=== PATIENT | female | born 1945 | race Caucasian/White ===

== ENCOUNTER 2017-07-06 14:21 | Inpatient (IN) ==
[2017-07-06] MEDS ORDERED: AMPICILLIN/SULBACTAM 3,000 MG in SODIUM CHLORIDE 0.9% 100 ML IV ONE (15:56)
[2017-07-06] MEDS ORDERED: BISACODYL 5 MG TABLET PO PRN (15:59)
[2017-07-06] MEDS ORDERED: ONDANSETRON 4 MG/2 ML VIAL IV PRN (15:59)
[2017-07-06] MEDS ORDERED: ACETAMINOPHEN 325 MG TABLET PO PRN (15:59)
[2017-07-06] MEDS ORDERED: HYDROmorphone 2 MG/1 ML VIAL IV PRN (15:59)
[2017-07-06 16:23] LABS: Basophils # 0.1 10*3/uL (0.0-0.2); Basophils % 0.7 % (0.0-0.8); Eosinophils # 0.5 10*3/uL (0.0-0.87); Eosinophils % 6.4 % (0.00-10.9); Hematocrit 36.8 VOL% (35.7-47.0); Immature Granulocytes % 0.1 %; Immature Granulocytes Absolute 0.01 #; Lymphocytes # 2.1 10*3/uL (1.4-4.0); Lymphocytes % 28.8 % (21.3-54.2); Mean Corpuscular HGB Conc 32.6 GM/DL (32-36); Mean Corpuscular Hemoglobin 29 PG (27-34); Mean Corpuscular Volume 90.2 FL (87-102); Mean Platelet Volume 10.3 FL (9.6-12.0); Monocytes # 0.7 10*3/uL (0.11-0.8); Monocytes % 9.3 % (1.7-12.7); Neutrophils % 54.7 % (38.7-73.9); Platelet Count 242 T/CUMM (130-400); Red Blood Count 4.08 MC/CUMM (3.8-5.5); Red Cell Distribution Width 13.9 % (9.3-17.3); White Blood Count 7.3 T/CUMM (4-12)
[2017-07-06 16:53] LABS: Alanine Aminotransferase 41 U/L (13-56); Albumin 3.4 G/DL (3.4-5.0); Alkaline Phosphatase 84 U/L (45-117); Aspartate Amino Transferase 36 U/L (0-37); Bilirubin,Total < 0.39 MG/DL (0.2-1.0); Blood Urea Nitrogen 25 MG/DL (7-18); Calcium 8.8 MG/DL (8.5-10.1); Glucose 98 MG/DL (74-106); Osmolality,Calculated 284.3 MOS/KG (273-304); Potassium 4.5 MMOL/L (3.5-5.1); Sodium 141 MMOL/L (136-145); Total Protein 6.7 G/DL (6.4-8.3)
[2017-07-06] MEDS: BISOPROLOL 5 MG TABLET PO SCH (18:16)
[2017-07-06] MEDS: PRAVASTATIN 40 MG TABLET PO SCH (18:16)
[2017-07-06] MEDS: METHENAMINE HIPPURATE 1 GM TABLET PO SCH (21:25)
[2017-07-06] MEDS: traZODone 50 MG TABLET PO SCH (21:26)
[2017-07-06] MEDS: MAGNESIUM OXIDE 400 MG TABLET PO SCH (21:26)
[2017-07-06] MEDS: POTASSIUM GLUCONATE 500 MG TABLET PO SCH (21:26)
[2017-07-06] MEDS: SPIRONOLACTONE 25 MG TABLET PO SCH (21:27)
[2017-07-06] MEDS: LACTATED RINGERS 1,000 ML IV SCH (22:15)
[2017-07-07 06:31] LABS: Basophils % 0.5 % (0.0-0.8); Eosinophils # 0.6 10*3/uL (0.0-0.87); Eosinophils % 10.1 % (0.00-10.9); Hematocrit 33.8 VOL% (35.7-47.0); Hemoglobin 10.8 GM/DL (12.0-16.0); Immature Granulocytes % 0.3 %; Immature Granulocytes Absolute 0.02 #; Lymphocytes # 2.2 10*3/uL (1.4-4.0); Lymphocytes % 36.5 % (21.3-54.2); Mean Corpuscular Hemoglobin 29 PG (27-34); Mean Corpuscular Volume 89.9 FL (87-102); Mean Platelet Volume 10.6 FL (9.6-12.0); Monocytes # 0.6 10*3/uL (0.11-0.8); Monocytes % 9.1 % (1.7-12.7); Neutrophils # 2.6 10*3/uL (1.4-7.4); Neutrophils % 43.5 % (38.7-73.9); Platelet Count 197 T/CUMM (130-400); Red Blood Count 3.76 MC/CUMM (3.8-5.5); Red Cell Distribution Width 13.9 % (9.3-17.3); White Blood Count 6.1 T/CUMM (4-12)
[2017-07-07 06:49] LABS: PT Patient Result 10.7 SECS; Partial Thromboplastin Time 24.5 SECS (0-40)
[2017-07-07 06:55] LABS: Albumin 2.8 G/DL (3.4-5.0); Bilirubin,Total 0.7 MG/DL (0.2-1.0); Calcium 8.4 MG/DL (8.5-10.1); Magnesium 2.3 MG/DL (1.8-2.4); Phosphorous 3.6 MG/DL (2.5-4.9); Potassium 4.3 MMOL/L (3.5-5.1); Total Protein 5.7 G/DL (6.4-8.3)
[2017-07-07] MEDS: LACTATED RINGERS 1,000 ML IV SCH ×4 (09:02→19:55)
[2017-07-07] MEDS: LISINOPRIL 20 MG TABLET PO SCH (09:20)
[2017-07-07] MEDS: AMIODARONE 200 MG TABLET PO SCH (09:20)
[2017-07-07] MEDS: BISOPROLOL 5 MG TABLET PO SCH (09:20)
[2017-07-07] MEDS: PANTOPRAZOLE 40 MG TABLET PO SCH (09:21)
[2017-07-07] MEDS ORDERED: AMPICILLIN/SULBACTAM 3,000 MG in SODIUM CHLORIDE 0.9% 100 ML IV ONE (11:00)
[2017-07-07] MEDS ORDERED: ONDANSETRON 4 MG/2 ML VIAL IV PRN (12:40)
[2017-07-07] MEDS ORDERED: PROPOFOL 200 MG/20 ML VIAL IV ONE (12:46)
[2017-07-07] MEDS ORDERED: fentaNYL 100 MCG/2 ML VIAL ONE (12:46)
[2017-07-07] MEDS ORDERED: ONDANSETRON 4 MG/2 ML VIAL ONE (12:47)
[2017-07-07] MEDS ORDERED: HYDROmorphone 2 MG/1 ML VIAL ONE (12:47)
[2017-07-07] MEDS: HYDROmorphone 2 MG/1 ML VIAL IV PRN ×2 (12:47→12:57)
[2017-07-07] MEDS: MAGNESIUM OXIDE 400 MG TABLET PO SCH ×2 (14:33→21:03)
[2017-07-07] MEDS: ANASTROZOLE 1 MG TABLET PO SCH (14:33)
[2017-07-07] MEDS: SPIRONOLACTONE 25 MG TABLET PO SCH ×2 (14:33→21:03)
[2017-07-07] MEDS: METHENAMINE HIPPURATE 1 GM TABLET PO SCH ×2 (14:45→21:02)
[2017-07-07] MEDS: POTASSIUM GLUCONATE 500 MG TABLET PO SCH ×2 (14:45→21:37)
[2017-07-07] MEDS: traZODone 50 MG TABLET PO SCH (21:03)
[2017-07-08] MEDS: LACTATED RINGERS 1,000 ML IV SCH ×3 (04:05→16:16)
[2017-07-08 06:35] LABS: Basophils # 0.1 10*3/uL (0.0-0.2); Basophils % 0.7 % (0.0-0.8); Eosinophils # 0.7 10*3/uL (0.0-0.87); Eosinophils % 10.1 % (0.00-10.9); Hemoglobin 11.2 GM/DL (12.0-16.0); Immature Granulocytes % 0.3 %; Immature Granulocytes Absolute 0.02 #; Lymphocytes # 2.2 10*3/uL (1.4-4.0); Lymphocytes % 29.5 % (21.3-54.2); Mean Corpuscular Hemoglobin 29 PG (27-34); Mean Platelet Volume 10.5 FL (9.6-12.0); Monocytes # 0.6 10*3/uL (0.11-0.8); Monocytes % 7.5 % (1.7-12.7); Neutrophils # 3.8 10*3/uL (1.4-7.4); Neutrophils % 51.9 % (38.7-73.9); Platelet Count 209 T/CUMM (130-400); Red Blood Count 3.89 MC/CUMM (3.8-5.5); Red Cell Distribution Width 13.7 % (9.3-17.3); White Blood Count 7.3 T/CUMM (4-12)
[2017-07-08 07:05] LABS: Calcium 8.7 MG/DL (8.5-10.1); Osmolality,Calculated 281.3 MOS/KG (273-304); Potassium 4.5 MMOL/L (3.5-5.1)
[2017-07-08] MEDS: ANASTROZOLE 1 MG TABLET PO SCH (09:00)
[2017-07-08] MEDS: LISINOPRIL 20 MG TABLET PO SCH (09:00)
[2017-07-08] MEDS: PANTOPRAZOLE 40 MG TABLET PO SCH (09:00)
[2017-07-08] MEDS: SPIRONOLACTONE 25 MG TABLET PO SCH ×2 (09:00→21:12)
[2017-07-08] MEDS: MAGNESIUM OXIDE 400 MG TABLET PO SCH ×2 (09:01→21:14)
[2017-07-08] MEDS: BISOPROLOL 5 MG TABLET PO SCH (09:01)
[2017-07-08] MEDS: METHENAMINE HIPPURATE 1 GM TABLET PO SCH ×2 (09:01→21:13)
[2017-07-08] MEDS: AMIODARONE 200 MG TABLET PO SCH (09:01)
[2017-07-08] MEDS: POTASSIUM GLUCONATE 500 MG TABLET PO SCH ×2 (09:02→21:14)
[2017-07-08] MEDS: AMPICILLIN/SULBACTAM 3,000 MG in SODIUM CHLORIDE 0.9% 100 ML IV SCH ×2 (16:32→22:35)
[2017-07-08] MEDS: PRAVASTATIN 40 MG TABLET PO SCH (16:32)
[2017-07-08] MEDS: traZODone 50 MG TABLET PO SCH (21:13)
[2017-07-09] MEDS: AMPICILLIN/SULBACTAM 3,000 MG in SODIUM CHLORIDE 0.9% 100 ML IV SCH (05:39)
[2017-07-09 07:46] VITALS: BP 154/83
[2017-07-09] MEDS: METHENAMINE HIPPURATE 1 GM TABLET PO SCH (09:21)
[2017-07-09] MEDS: BISOPROLOL 5 MG TABLET PO SCH (09:21)
[2017-07-09] MEDS: LISINOPRIL 20 MG TABLET PO SCH (09:21)
[2017-07-09] MEDS: PANTOPRAZOLE 40 MG TABLET PO SCH (09:21)
[2017-07-09] MEDS: ANASTROZOLE 1 MG TABLET PO SCH (09:21)
[2017-07-09] MEDS: AMIODARONE 200 MG TABLET PO SCH (09:21)
[2017-07-09] MEDS: MAGNESIUM OXIDE 400 MG TABLET PO SCH (09:21)
[2017-07-09] MEDS: SPIRONOLACTONE 25 MG TABLET PO SCH (09:23)
[2017-07-09] MEDS: POTASSIUM GLUCONATE 500 MG TABLET PO SCH (09:23)
== END 2017-07-09 11:37 | disposition home health service (06) | DRG 571 ==
LOC: N.3E 14:37 → OBSVTOIN 14:37 → INTOOBSV 14:37
PROVIDERS: ADMIT Surgery; ATTEND Surgery

== ENCOUNTER 2021-04-24 16:24 | Inpatient (IN) ==
[2021-04-24 21:50] LABS: Basophils % 0.6 % (0.0-0.8); Eosinophils # 0.1 10*3/uL (0.0-0.87); Eosinophils % 1.9 % (0.00-10.9); Hematocrit 38.6 VOL% (35.7-47.0); Immature Granulocytes % 0.4 %; Immature Granulocytes Absolute 0.02 #; Lymphocytes # 1.3 10*3/uL (1.4-4.0); Lymphocytes % 25.5 % (21.3-54.2); Mean Corpuscular HGB Conc 31.1 GM/DL (32-36); Mean Corpuscular Volume 94.4 FL (87-102); Mean Platelet Volume 10.8 FL (9.6-12.0); Monocytes % 7.3 % (1.7-12.7); NRBC # 0.02 10*3/uL; Neutrophils % 64.3 % (38.7-73.9); Platelet Count 151 T/CUMM (130-400); Red Blood Count 4.09 MC/CUMM (3.8-5.5); Red Cell Distribution Width 15.4 % (9.3-17.3); White Blood Count 5.2 T/CUMM (4-12)
[2021-04-24 22:02] LABS: INR 1.1; PT Patient Result 12.2 SECS (10.5-12.0); Partial Thromboplastin Time 25.1 SECS (23.9-33.8)
[2021-04-24 22:05] LABS: Albumin 3.3 G/DL (3.4-5.0); Bilirubin,Total 0.6 MG/DL (0.20-1.00); Calcium 9.1 MG/DL (8.5-10.1); Osmolality,Calculated 282.4 MOS/KG (273-304); Potassium 3.6 MMOL/L (3.5-5.1); Total Protein 6.8 G/DL (6.4-8.2)
[2021-04-24] MEDS ORDERED: hydrALAZINE 20 MG/1 ML VIAL IV PRN (23:22)
[2021-04-24] MEDS ORDERED: DOCUSATE SODIUM 100 MG CAPSULE PO PRN (23:22)
[2021-04-24] MEDS ORDERED: ACETAMINOPHEN 325 MG TABLET PO PRN (23:22)
[2021-04-24] MEDS ORDERED: ZALEPLON 5 MG CAPSULE PO PRN (23:22)
[2021-04-24] MEDS ORDERED: guaiFENesin/DM ER 600-30 MG TABLET PO PRN (23:22)
[2021-04-24] MEDS ORDERED: DEXTROSE 50% 25 GM/50 ML VIAL IV PRN (23:22)
[2021-04-24] MEDS ORDERED: ONDANSETRON 4 MG/2 ML VIAL IV PRN (23:22)
[2021-04-24] MEDS ORDERED: GLUCAGON 1 MG VIAL IM PRN (23:22)
[2021-04-24] MEDS ORDERED: PANTOPRAZOLE 40 MG VIAL IV STA (23:24)
[2021-04-25 01:02] LABS: Basophils % 0.5 % (0.0-0.8); Eosinophils # 0.3 10*3/uL (0.0-0.87); Eosinophils % 3.2 % (0.00-10.9); Hematocrit 25.2 VOL% (35.7-47.0); Hemoglobin 7.9 GM/DL (12.0-16.0); Immature Granulocytes % 1.1 %; Immature Granulocytes Absolute 0.09 #; Lymphocytes # 2.2 10*3/uL (1.4-4.0); Lymphocytes % 26.9 % (21.3-54.2); Mean Corpuscular HGB Conc 31.3 GM/DL (32-36); Mean Corpuscular Volume 96.2 FL (87-102); Mean Platelet Volume 11.1 FL (9.6-12.0); Monocytes % 7.6 % (1.7-12.7); Neutrophils % 60.7 % (38.7-73.9); Platelet Count 223 T/CUMM (130-400); Red Blood Count 2.62 MC/CUMM (3.8-5.5); Red Cell Distribution Width 15.3 % (9.3-17.3); White Blood Count 8.2 T/CUMM (4-12)
[2021-04-25] MEDS ORDERED: PANTOPRAZOLE INJ 200 MG in SODIUM CHLORIDE 0.9% 250 ML IV SCH (03:00)
[2021-04-25 05:06] LABS: Basophils % 0.5 % (0.0-0.8); Eosinophils # 0.4 10*3/uL (0.0-0.87); Eosinophils % 4.7 % (0.00-10.9); Hematocrit 23.7 VOL% (35.7-47.0); Hemoglobin 7.2 GM/DL (12.0-16.0); Immature Granulocytes % 1.7 %; Immature Granulocytes Absolute 0.13 #; Lymphocytes # 2.1 10*3/uL (1.4-4.0); Mean Corpuscular HGB Conc 30.4 GM/DL (32-36); Monocytes % 10.6 % (1.7-12.7); Neutrophils % 54.5 % (38.7-73.9); Platelet Count 186 T/CUMM (130-400); Red Blood Count 2.47 MC/CUMM (3.8-5.5); Red Cell Distribution Width 15.3 % (9.3-17.3); White Blood Count 7.4 T/CUMM (4-12)
[2021-04-25] MEDS ORDERED: SODIUM CHLORIDE 0.9% 1,000 ML IV PRN (05:22)
[2021-04-25] MEDS ORDERED: NITROGLYCERIN SL 0.4 MG TABLET SL PRN (05:27)
[2021-04-25 05:48] LABS: Albumin 2.9 G/DL (3.4-5.0); Bilirubin,Total 0.7 MG/DL (0.20-1.00); Osmolality,Calculated 286.1 MOS/KG (273-304); Potassium 3.7 MMOL/L (3.5-5.1); Total Protein 6.1 G/DL (6.4-8.2)
[2021-04-25] MEDS ORDERED: INFLUENZA VIRUS VACCINE 0.5 ML SYRINGE IM ONE (09:00)
[2021-04-25] MEDS: BISOPROLOL 5 MG TABLET PO SCH (12:48)
[2021-04-25] MEDS: lisinopriL 20 MG TABLET PO SCH ×2 (12:48→12:50)
[2021-04-25] MEDS: ANASTROZOLE 1 MG TABLET PO SCH (12:49)
[2021-04-25] MEDS: AMIODARONE 200 MG TABLET PO SCH (12:49)
[2021-04-25 21:35] LABS: Hematocrit 32.6 VOL% (35.7-47.0)
[2021-04-25] MEDS: PANTOPRAZOLE 40 MG VIAL IV SCH (21:36)
[2021-04-25 21:38] LABS: Hemoglobin 10.3 GM/DL (12.0-16.0)
[2021-04-26 06:36] LABS: Basophils # 0.1 10*3/uL (0.0-0.2); Basophils % 0.8 % (0.0-0.8); Eosinophils # 0.4 10*3/uL (0.0-0.87); Eosinophils % 6.2 % (0.00-10.9); Hematocrit 31.9 VOL% (35.7-47.0); Hemoglobin 10.3 GM/DL (12.0-16.0); Immature Granulocytes % 0.5 %; Immature Granulocytes Absolute 0.03 #; Lymphocytes # 1.9 10*3/uL (1.4-4.0); Lymphocytes % 29.8 % (21.3-54.2); Mean Corpuscular HGB Conc 32.3 GM/DL (32-36); Mean Platelet Volume 10.7 FL (9.6-12.0); Monocytes % 9.4 % (1.7-12.7); Neutrophils % 53.3 % (38.7-73.9); Platelet Count 171 T/CUMM (130-400); Red Blood Count 3.43 MC/CUMM (3.8-5.5); White Blood Count 6.3 T/CUMM (4-12)
[2021-04-26 06:47] LABS: Calcium 8.9 MG/DL (8.5-10.1); Potassium 3.8 MMOL/L (3.5-5.1)
[2021-04-26] MEDS: lisinopriL 20 MG TABLET PO SCH (09:05)
[2021-04-26] MEDS: AMIODARONE 200 MG TABLET PO SCH (09:05)
[2021-04-26] MEDS: PANTOPRAZOLE 40 MG VIAL IV SCH ×2 (09:08→20:53)
[2021-04-26] MEDS: BISOPROLOL 5 MG TABLET PO SCH (09:14)
[2021-04-26] MEDS: ANASTROZOLE 1 MG TABLET PO SCH (09:54)
[2021-04-26] MEDS: LACTATED RINGERS 1,000 ML IV SCH (11:07)
[2021-04-26 12:00] LABS: Hematocrit 36.5 VOL% (35.7-47.0); Hemoglobin 11.6 GM/DL (12.0-16.0)
[2021-04-26] MEDS ORDERED: propofoL 200 MG/20 ML VIAL IV ONE (13:27)
[2021-04-26] MEDS ORDERED: LIDOCAINE 2% 5 ML VIAL ONE (13:27)
[2021-04-26] MEDS ORDERED: hydrALAZINE 20 MG/1 ML VIAL ONE (13:40)
[2021-04-26 16:54] LABS: Basophils # 0.1 10*3/uL (0.0-0.2); Basophils % 0.7 % (0.0-0.8); Eosinophils # 0.3 10*3/uL (0.0-0.87); Eosinophils % 4.3 % (0.00-10.9); Hematocrit 34.2 VOL% (35.7-47.0); Hemoglobin 10.8 GM/DL (12.0-16.0); Immature Granulocytes % 0.4 %; Immature Granulocytes Absolute 0.03 #; Lymphocytes # 2.1 10*3/uL (1.4-4.0); Lymphocytes % 29.4 % (21.3-54.2); Mean Corpuscular HGB Conc 31.6 GM/DL (32-36); Mean Corpuscular Volume 93.4 FL (87-102); Mean Platelet Volume 10.7 FL (9.6-12.0); Monocytes % 8.1 % (1.7-12.7); Neutrophils % 57.1 % (38.7-73.9); Platelet Count 184 T/CUMM (130-400); Red Blood Count 3.66 MC/CUMM (3.8-5.5)
[2021-04-26 17:05] LABS: Calcium 9.3 MG/DL (8.5-10.1); Osmolality,Calculated 282.1 MOS/KG (273-304); Potassium 3.8 MMOL/L (3.5-5.1)
[2021-04-26] MEDS ORDERED: AMIODARONE 200 MG TABLET PO ONE (17:24)
[2021-04-27 05:23] LABS: Hematocrit 35.4 VOL% (35.7-47.0); Hemoglobin 10.9 GM/DL (12.0-16.0)
[2021-04-27 05:24] LABS: Basophils % 0.3 % (0.0-0.8); Eosinophils # 0.3 10*3/uL (0.0-0.87); Eosinophils % 3.2 % (0.00-10.9); Immature Granulocytes % 0.7 %; Immature Granulocytes Absolute 0.06 #; Lymphocytes # 1.4 10*3/uL (1.4-4.0); Lymphocytes % 16.3 % (21.3-54.2); Mean Corpuscular HGB Conc 31.4 GM/DL (32-36); Mean Corpuscular Volume 94.9 FL (87-102); Mean Platelet Volume 10.8 FL (9.6-12.0); Monocytes % 7.5 % (1.7-12.7); Platelet Count 217 T/CUMM (130-400); Red Blood Count 3.69 MC/CUMM (3.8-5.5); Red Cell Distribution Width 15.1 % (9.3-17.3); White Blood Count 8.6 T/CUMM (4-12)
[2021-04-27 05:41] LABS: Calcium 9.3 MG/DL (8.5-10.1); Osmolality,Calculated 283.1 MOS/KG (273-304)
[2021-04-27] MEDS ORDERED: AMIODARONE 200 MG TABLET PO SCH (09:00)
[2021-04-27] MEDS: PANTOPRAZOLE 40 MG VIAL IV SCH (09:27)
[2021-04-27] MEDS: lisinopriL 20 MG TABLET PO SCH (09:29)
[2021-04-27] MEDS: BISOPROLOL 5 MG TABLET PO SCH (09:29)
[2021-04-27] MEDS: ANASTROZOLE 1 MG TABLET PO SCH (09:30)
[2021-04-27] MEDS: LACTATED RINGERS 1,000 ML IV SCH (09:32)
[2021-04-27 12:00] VITALS: BP 169/68
[2021-04-27 12:09] LABS: Hemoglobin 11.4 GM/DL (12.0-16.0)
[2021-04-28] MEDS ORDERED: POLYETHYLENE GLYCOL POWDER 255 GM BOTTLE PO ONE (16:00)
[2021-04-29] MEDS ORDERED: POLYETHYLENE GLYCOL POWDER 255 GM BOTTLE PO ONE (05:00)
== END 2021-04-27 12:03 | disposition home or self-care (01) | DRG 813 ==
LOC: N.ED 16:24 → N.EDINP 16:24 → N.4E 04-25 02:18 → SUATTDRO 04-25 05:21
PROVIDERS: ADMIT Internal Medicine; ATTEND Internal Medicine